=== PATIENT | female | born 1965 ===

== ENCOUNTER 2017-02-19 07:47 | Day surgery (SDC) | payer OTHER ==
[~2017-02-19 07:47] MED LIST: Buffered Lidocaine 0.9% SYRIN* 5 ML/SYR SYRINGE INTRADERM ONE; Dexamethasone TAB* 4 MG PO ONE; Famotidine IV* 10 MG/ML 2 ML (20 mg) IV ONE; Scopolamine 1.5 mg* PATCH TRANSDERM ONE
[2017-02-19] MEDS ORDERED: Dexamethasone IV* 4 MG/ML 1 ML (4 MG) ONE (07:48)
[2017-02-19] MEDS ORDERED: Famotidine IV* 10 MG/ML 2 ML (20 mg) ONE (07:48)
[2017-02-19] MEDS ORDERED: Scopolamine 1.5 mg* PATCH ONE (07:48)
[2017-02-19] MEDS ORDERED: Buffered Lidocaine 0.9% SYRIN* 5 ML/SYR SYRINGE ONE (07:48)
[2017-02-19] MEDS ORDERED: Ciprofloxacin 0.3% OPTH.SOL* 2.5 ML BTL ONE (09:45)
[2017-02-19] MEDS ORDERED: Lidocaine 1.5% EPI 1:200,000* 30 ML SDV ONE (09:45)
[2017-02-19] MEDS ORDERED: Gelfoam 12-7 ADSORBABL SPONGE* 1 EA SPONGE ONE (09:45)
[2017-02-19] MEDS ORDERED: fentaNYL* 50 MCG/ML 2 ML VIAL (100 MCG VIAL) ONE ×3 (09:57→12:56)
[2017-02-19] MEDS ORDERED: Midazolam* 1 MG/ML 5 ML VIAL (5 MG) ONE (09:57)
[2017-02-19] MEDS ORDERED: Lidocaine 2% PF * 5 ML VIAL ONE (10:01)
[2017-02-19] MEDS ORDERED: Cisatracurium* 2 MG/ML MDV 5 ML ONE (10:01)
[2017-02-19] MEDS ORDERED: Propofol* 10 MG/ML 20 ML BTL IV PUSH ONE (10:01)
[2017-02-19] MEDS ORDERED: EPHEDrine (Pressors)* 50 MG/ML VIAL ONE (11:01)
[2017-02-19] MEDS ORDERED: DiMENhydriNATE IV* 50 MG/ML VIAL IV PUSH PRN (11:04)
[2017-02-19] MEDS ORDERED: HYDROcodone/ACETAMIN 5-325 MG* 1 TAB PO PRN (11:04)
[2017-02-19] MEDS ORDERED: fentaNYL* 50 MCG/ML 2 ML VIAL (100 MCG VIAL) IV PRN (11:04)
[2017-02-19] MEDS ORDERED: oxyCODONE/Acetamin 5/325 MG* TAB PO PRN (11:04)
[2017-02-19] MEDS ORDERED: EPINEPHrine AMP 1 MG/ML ONE ×2 (11:20→12:14)
[2017-02-19] MEDS ORDERED: Ondansetron INJ* 2 MG/ML VIAL ONE (11:46)
[2017-02-19] MEDS ORDERED: Bacitracin OINTMENT* 1 TUBE ONE (12:00)
[2017-02-19] MEDS ORDERED: oxyCODONE/Acetamin 5/325 MG* TAB ONE (12:56)
[2017-02-19 13:18] VITALS: BP 134/88
--- NOTE | 2017-02-20 03:08 | OP ---
DATE OF OPERATION: 02/19/17 [facility] DATE OF : 69 ATTENDING SURGEON: Dr. Sander Huang. ALCOHOLIC COUNSELOR: None. ANESTHESIOLOGIST: Shannan Rivera MD ANESTHESIA: General. PRE-OP DIAGNOSIS: Perforation left tympanic membrane, central. POST-OP DIAGNOSIS: Perforation left tympanic membrane, central. OPERATIVE PROCEDURE: Left tympanoplasty underlay with fascia. ESTIMATED BLOOD LOSS: Less than 30 cc. FINDINGS: Relatively large central perforation of the left tympanic membrane with slight foreshortening of the malleus and middle ear mucosal inflammation. 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 She started to have problems with recurring drainage and has a significant conductive hearing loss and so the decision was made to make an attempt at tympanoplasty both to reduce the risk of infection and potentially improve hearing. DESCRIPTION OF PROCEDURE: On 02/19/17, the patient was brought to the operating room, general anesthesia was induced and oral endotracheal tube was placed. The tablet was turned 90 degrees. The patient's left ear was prepped with Betadine and draped sterilely and a time-out was performed. Approximately 3 cc of 1% lidocaine with epinephrine was infiltrated into the postauricular sulcus. The microscope was then brought into the field. The ear canal was irrigated with saline. Some squamous debris and cerumen was removed from the ear canal and the surface of tympanic membrane. A four-quadrant canal injection was made with 1% lidocaine with epinephrine. A disposable angle [place] blade was then used to make a circumferential incision from 12 to 6 posteriorly. Releasing cuts were also made with a sickle knife in a radial direction. A piece of epi soaked Gelfoam was placed against the incisions and attention turned postauricularly. A #15 blade was used to make postauricular incision. Deeper dissection through the postauricular soft tissue was made with a Bovie cautery down to the level of mastoid periosteum and temporalis fascia. A 2 cm x 2 cm temporalis fascia graft was then harvested and placed in graft, pressed and ultimately dried. An incision was then made through the mastoid periosteum along the temporal line and a limb dropped inferiorly towards the mastoid tip. Periosteal elevator was used to elevated the periosteum of the mastoid and in particular to reflect periosteum anteriorly into the region of the posterior canal wall. Once the endaural incision was made, a Kehinde drain was placed into the ear canal, brought out postauricularly and used to retract the ear forward. The microscope was then brought back to view. The perforation was examined. The edges of the perforation were rimmed. There was a small adhesion between the distal end of the malleus and the of the middle ear, this was divided as well. With the edges of the perforation freshened, a tympanomeatal flap was elevated using a round knife. The middle ear mucosa was very inflamed, but the annulus was identified, elevated without any breach. The chorda tympani nerve was also seen and preserved intact. Once a tympanomeatal flap was elevated anteriorly, the middle ear was packed with Cipro-soaked Gelfoam. The fascial graft was then brought in and placed underneath the tympanomeatal flap, it was tucked underneath the edges of the perforation as well as underneath the malleus. Additional Cipro-soaked Gelfoam was placed into the middle ear to make sure that there was tight apposition of the graft to the undersurface of the tympanomeatal flap. The tympanomeatal flap was then laid back down into position and additional Cipro-soaked Gelfoam was placed into the ear canal. The posterior canal incision was then closed in layers, mastoid periosteum was closed as was the dermis with interrupted sutures 4-0 Vicryl. The remainder of the ear canal was then packed with Cipro-soaked Gelfoam. A mastoid dressing was applied and the patient was returned to the care of the anesthesiologist, extubated and delivered to the PACU in stable condition. [id number]/[facility] #: [id number] MAGDALENA
[2017-02-22] MEDS ORDERED: Scopolomine PATCH Remove* 1 NOTE MISC PATCH OFF ONE (06:00)
== END 2017-02-19 13:50 | disposition home or self-care (01) ==
LOC: OR 07:47
PROVIDERS: ATTEND Otolaryngology
DX: H72.02 Central perforation of tympanic membrane, left ear (principal); I10 Essential (primary) hypertension; E78.5 Hyperlipidemia, unspecified; E03.9 Hypothyroidism, unspecified; G47.33 Obstructive sleep apnea (adult) (pediatric)
CPT/HCPCS: 81025; A9270-GY; J0171; J1100; J2250; J2405; J2704; J3010

== ENCOUNTER 2017-09-10 09:39 | Emergency (ER) | payer SELFPAY ==
[2017-09-10 09:57] VITALS: BP 139/89
--- NOTE | 2017-09-10 11:39 | UC ---
Head Injury HPI - HPI Summary HPI Summary: 51 yo female presents for evaluation s/p hitting head hard on her desk yesterday. She was reaching under the desk and quickly put her head up, striking top of head. [place] "goose-egg" then, better now. + headache since yesterday, awakening her in the middle of the night. Better now, but still present. Improved with exedrin this am. Yesterday + nausea, no vomit. Ate ok. Today + neck pain L>R. No p/d/w. No visual or auditory changes. Does have hx of L TM hole, with recent surgery. Baseline with occasional dizzy, also has hearing aide L ear (not wearing today). Denies difficulty with memory , processing, word finding, etc. No LOC. - History Of Current Complaint Chief Complaint: UCHeadInjury Stated Complaint: WC - HEAD INJ (YESTERDAY) Time Seen by Provider: 09/10/17 10:53 Hx Obtained From: Patient ?: No Pain Intensity: 3 - Allergies/Home Medications Allergies/Adverse Reactions: Allergies Allergy/AdvReac Type Severity Reaction Status Date / Time bismuth subsalicylate Allergy Vomiting Verified 09/10/17 10:00 [From Pepto-Bismol] clindamycin Allergy Rash Verified 09/10/17 10:00 erythromycin base Allergy Rash Verified 09/10/17 10:00 Penicillins Allergy Rash Verified 09/10/17 10:00 Sulfa (Sulfonamide Allergy Rash Verified 09/10/17 10:00 Antibiotics) Tetracyclines Allergy Rash Verified 09/10/17 10:00 PMH/Surg Hx/FS Hx/Imm Hx Previously Healthy: Yes - Surgical History Surgical History: Yes Surgery Procedure, Year, and Place: LASIC SURGERY BILAT. EYES. WISDOM TEETH REMOVED - Family History Known Family History: Positive: None - Social History Alcohol Use: Rare Substance Use Type: None Smoking Status (MU): Never Smoked Tobacco Have You Smoked in the Last Year: No Review of Systems Constitutional: Negative Skin: Negative Eyes: Negative ENT: Other - see hpi Respiratory: Negative Cardiovascular: Negative Gastrointestinal: Negative Genitourinary: Negative Motor: Negative Neurovascular: Negative Musculoskeletal: Other: - see hpi Neurological: Headache Psychological: Negative Is Patient Immunocompromised?: No All Other Systems Reviewed And Are Negative: Yes Physical Exam Triage Information Reviewed: Yes Appearance: Well-Appearing, Well-Nourished - sitting up, conversing in full sentances Vital Signs: Initial Vital Signs Temp 98.1 F 09/10/17 09:52 Pulse 80 09/10/17 09:52 Resp 19 09/10/17 09:52 BP 139/89 09/10/17 09:52 Pulse Ox 99 09/10/17 09:52 Vital Signs Reviewed: Yes Eye Exam: Normal - perrla eomi. sw / cp. fundi direct nondilated nad ENT: Positive: Pharyngeal erythema - slight post pharyngeal redness, no sores / exudate, uvula midline, Other - R TM dull, EAC ok. L TM dull, + hole Neck exam: Other - + tender post cervical spine, extending to L upper lat neck No direct point bony tenderness Neck: Positive: No Lymphadenopathy Respiratory Exam: Normal Respiratory: Positive: Chest non-tender, Lungs clear, Normal breath sounds, No respiratory distress, No accessory muscle use Cardiovascular Exam: Normal Cardiovascular: Positive: RRR, No Murmur, Pulses Normal, Brisk Capillary Refill Abdominal Exam: Normal Abdomen Description: Positive: Nontender Musculoskeletal Exam: Normal Musculoskeletal: Positive: Strength Intact Neurological Exam: Normal - CN's 1-12 intact, including + smell to alcohol swab. Moves x 4 ext's, gait steady. Ax N sens + bilat. Pat reflex 3+ bilat equal. Distal sensation LT x 4 ext' present. Hand grasp, incl ok sign index / 5th good. Heel to toe forward and back 4ft good Sharpened rhomberg R foot forward 8 sec, L foot forward 15 sec. Of note, Ms. Morrison reports that she does not feel more unsteady than usual. Psychological Exam: Normal Skin Exam: Normal Head Injury Course/Dx - Course Course Of Treatment: Reviewed CT results, coa/ tx plan. Reviewed recommendation for f/u with PCP. [place] is [place] of [place] next [place], as such will f/u with PCP upon return. Will seek medical attention for worse or new problems. - Differential Dx/Diagnosis Provider Diagnoses: Head injury with sx c/w concussion. Cervical strain Discharge - Discharge Plan Condition: Stable Disposition: HOME Patient Education Materials: Cervical Strain (ED), Concussion in Children (ED) Referrals: Babita Ward MD [Primary Care Provider] - Additional Instructions: Drink plenty of fluids. Do not drive or operate heavy machinery if feeling dizzy or unsteady. Seek medical attention for worse or new problems. Follow up with your primary care physician, in the next 1-2 weeks.
--- NOTE | 2017-09-10 12:06 | RAD ---
HISTORY: Trauma, neck pain COMPARISONS: None TECHNIQUE: Multiple contiguous axial CT scans were obtained of the cervical spine without intravenous contrast, with coronal and sagittal multiplanar reformations. FINDINGS: BRAIN: The visualized brain is unremarkable CENTRAL CANAL: Evaluation of the central canal is limited on CT technique; however, there is no obvious canalicular mass or epidural hemorrhage. ALIGNMENT: There is straightening of the cervical lordosis. VERTEBRAL BODIES: There is no displaced fracture. There is mild anterolateral marginal osteophyte formation and posterior osteophytic ridging. The odontoid process is intact. 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 There is mild osteoarthritis of the uncovertebral joints. There is no subluxation. MUSCULATURE: Unremarkable INTERVERTEBRAL DISCS: There is diffuse loss of intervertebral disc height. AXIAL IMAGES: C2-C3: There is no osseous neural foraminal narrowing or central canal stenosis. C3-C4: There is no osseous neural foraminal narrowing or central canal stenosis. C4-C5: There is no osseous neural foraminal narrowing or central canal stenosis. C5-C6: There is no osseous neural foraminal narrowing or central canal stenosis. C6-C7: There is no osseous neural foraminal narrowing or central canal stenosis. C7-T1: There is no osseous neural foraminal narrowing or central canal stenosis. SOFT TISSUES: The thyroid gland is heterogeneous atrophic. The prevertebral fat stripe is preserved. OTHER: None. IMPRESSION: 1. STRAIGHTENING OF THE CERVICAL LORDOSIS. 2. MILD DEGENERATIVE DISC DISEASE AND OSTEOARTHRITIS. NO SIGNIFICANT OSSEOUS NEURAL FORAMINAL NARROWING OR CENTRAL CANAL STENOSIS. 3. NO ACUTE OSSEOUS INJURY TO THE CERVICAL SPINE.
--- NOTE | 2017-09-10 12:07 | RAD ---
Indication: Head injury with headaches. CT of the brain was performed without IV contrast. Ventricular structures are midline. No midline shift is noted. The extraction spaces are unremarkable. There is no evidence of intracranial mass or hemorrhage. No other high or low density lesions identified. Mastoid air cells and paranasal sinuses are otherwise unremarkable. Bony calvaria is otherwise unremarkable. IMPRESSION: NO INTRACRANIAL MASS OR HEMORRHAGE IS NOTED.
== END 2017-09-10 12:31 | disposition home or self-care (01) ==
LOC: UCCORT 09:39
DX: S09.90XA Unspecified injury of head, initial encounter (principal); S16.1XXA Strain of muscle, fascia and tendon at neck level, initial encounter; Z88.1 Allergy status to other antibiotic agents; W22.03XA Walked into furniture, initial encounter; Y93.89 Activity, other specified; Y92.9 Unspecified place or not applicable; Z88.0 Allergy status to penicillin
CPT/HCPCS: 70450; 72125; 99211; G0463